=== PATIENT | male | born 2000 | race Caucasian/White ===

== ENCOUNTER → 2020-08-30 | Outpatient (CLI) | payer SELFPAY | LOC: M LABSMTC 10:56 | PROVIDERS: ATTEND Pediatrics | DX: Z20.828 Contact with and (suspected) exposure to other viral communicable diseases (principal) ==

== ENCOUNTER → 2020-10-02 | Outpatient (CLI) | payer SELFPAY | LOC: M LABSMTC 10:39 | PROVIDERS: ATTEND Pediatrics | DX: Z20.822 Contact with and (suspected) exposure to COVID-19 (principal) ==

== ENCOUNTER 2023-06-07 20:56 | Emergency (ER) | payer OTHER ==
[~2023-06-07] VITALS: Ht 180.3 cm; Wt 97.7 kg
[2023-06-08] MEDS ORDERED: DOXY100T PO (04:33)
[2023-06-08] MEDS ORDERED: DOXYCYCLINE HYCLATE 100MG TABLET PO ONE (04:35)
[2023-06-08 04:46] VITALS: BP 131/80; TEMP 98.8; O2SAT 99
== END 2023-06-08 04:50 | disposition home or self-care (01) ==
LOC: M ED 20:56
DX: J06.9 Acute upper respiratory infection, unspecified (principal); Z79.2 Long term (current) use of antibiotics